=== PATIENT | male | born 1955 | race Caucasian/White ===

== ENCOUNTER 2018-09-27 02:02 | Outpatient (CLI) | payer BC, SELFPAY ==
[2018-09-27 11:10] LABS: Abs Immature Grans 0.01 k/cumm (0.0-0.09); Absolute Basophil Count 0.05 k/cumm (0.0-0.2); Absolute Eosinophil Count 0.14 k/cumm (0.0-0.7); Absolute Monocyte Count 0.44 k/cumm (0.11-0.7); Absolute Neutrophil Count 3.84 k/cumm (1.2-6.7); Basophils % 0.7; Eosinophils % 2.1; HCT 45.6 % (40.0-50.0); HGB 15.7 g/dL (13.5-17.5); Immature Grans % 0.1; Lymphocytes % 32.9; Mean Corp. HGB Concentration 34.4 g/dL (32.0-36.0); Mean Corpuscular Hemoglobin 30.5 pg (27.0-33.0); Mean Corpuscular Volume 88.5 fL (80-95); Mean Platelet Volume 10.6 fL (8.0-11.0); Monocytes % 6.6; Neutrophils % 57.6; Platelet Count 205 x1000/uL (130-400); RBC 5.15 m/cumm (4.50-6.00); RBC Distribution Width 13.4 % (11.8-14.1); White Blood Cell Count 6.68 k/cumm (4.4-10.8)
[2018-09-27 11:29] LABS: ALT 27 U/L (12-78); AST 17 U/L (15-37); Albumin 4.3 g/dL (3.4-5.0); Alkaline Phosphatase 73 U/L (46-116); Anion Gap 10.3 mmol/L (3-11); BUN 20 mg/dL (7-18); Bilirubin, Total 0.8 mg/dL (0.2-1.0); CO2 26.7 mmol/L (21.0-32.0); CREATININE 1.22 mg/dL (0.70-1.30); Calcium 9.1 mg/dL (8.5-10.1); Chloride 99 mmol/L (98-107); Cholesterol 115 mg/dL (50-200); Estimated GFR 59.99 (mL/min/1.73m2); Glucose 213 mg/dL (70-100); HDL Cholesterol 32 mg/dL (40-60); LDL CHOLESTEROL 56 mg/dL (<100); Potassium 4.1 mmol/L (3.5-5.1); Sodium 136 mmol/L (136-145); Total Protein 7.6 g/dL (6.4-8.2); Triglyceride 157 mg/dL (30-150)
== END 2018-09-27 02:22 ==
PROVIDERS: PCP Internal Medicine; Visit Provider Internal Medicine
DX: E11.9 Type 2 diabetes mellitus without complications (principal); I10 Essential (primary) hypertension; R50.9 Fever, unspecified
CPT/HCPCS: 36415; 80053; 80061; 83721; 85025

== ENCOUNTER 2018-12-26 01:38 | Outpatient (CLI) | payer BC, SELFPAY ==
[2018-12-26 12:14] LABS: Hemoglobin A1C 8.8 % (4.5-6.2)
== END 2018-12-26 01:58 ==
PROVIDERS: PCP Internal Medicine; Visit Provider Internal Medicine
DX: E11.9 Type 2 diabetes mellitus without complications (principal)
CPT/HCPCS: 36415; 83036

== ENCOUNTER 2019-03-21 01:54 | Outpatient (CLI) | payer BC, SELFPAY ==
[2019-03-21 12:05] LABS: Hemoglobin A1C 7.3 % (4.5-6.2)
== END 2019-03-21 02:14 ==
PROVIDERS: PCP Internal Medicine; Visit Provider Internal Medicine
DX: E11.9 Type 2 diabetes mellitus without complications (principal)
CPT/HCPCS: 36415; 83036

== ENCOUNTER 2019-12-26 01:27 | Outpatient (CLI) | payer BC, SELFPAY ==
[2019-12-26 09:11] LABS: Hemoglobin A1C 7.4 % (3.8-5.6)
[2019-12-26 09:40] LABS: CREATININE 1.26 mg/dL (0.70-1.30); Calculated LDL 50 mg/dL (<100); Cholesterol 127 mg/dL (<200); Estimated GFR 57.62 (mL/min/1.73m2); HDL Cholesterol 39 mg/dL (40-60); Triglyceride 194 mg/dL (<150)
== END 2019-12-26 01:47 ==
PROVIDERS: PCP Nurse Practitioner; Visit Provider Nurse Practitioner
DX: I10 Essential (primary) hypertension (principal); E11.9 Type 2 diabetes mellitus without complications; E78.2 Mixed hyperlipidemia
CPT/HCPCS: 36415; 80061; 82565; 83036

== ENCOUNTER 2020-07-14 04:17 | Outpatient (CLI) | payer MEDICARE, BC, SELFPAY ==
[2020-07-15 15:10] LABS: COVID-19 RT-PCR UVMMC Result Negative (Negative)
== END 2020-07-14 04:37 ==
PROVIDERS: PCP Nurse Practitioner; Visit Provider Nurse Practitioner
DX: Z20.822 Contact with and (suspected) exposure to COVID-19 (principal)
CPT/HCPCS: U0003

== ENCOUNTER 2020-09-10 10:23 | Outpatient (CLI) | payer MEDICARE, BC, SELFPAY ==
--- NOTE | 2020-09-10 08:48 | DI.RAD_ITS ---
EXAM: XR SHOULDER RT COMPLETE 2+V CLINICAL HISTORY: R shoulder pain. TECHNIQUE: 2D digital imaging was performed. COMPARISON: No exams were available for comparison FINDINGS: There is spurring at the undersurface of the acromion. There are mild degenerative changes of the AC joint. There there is spurring at the inferior glenohumeral joint. Subchondral cysts are noted in the humeral head. Humeral head appears superiorly positioned and could represent a chronic rotator c uff tear. Sternal wires are incidentally noted. IMPRESSION: Mild degenerative changes of the glenohumeral joint. Question of chronic rotator tear. DATA REPOSITORY: RADIATION DOSE DELIVERED:
== END 2020-09-10 10:24 | disposition home or self-care (01) ==
LOC: DIORS 10:23
PROVIDERS: PCP Nurse Practitioner; Referring Provider Nurse Practitioner; Visit Provider Physician Assistant
DX: M19.011 Primary osteoarthritis, right shoulder (principal)
CPT/HCPCS: 73030

== ENCOUNTER → 2020-10-20 08:00 | Outpatient (BNVA) | payer MEDICARE, BC, SELFPAY | PROVIDERS: PCP Nurse Practitioner; Visit Provider Student in an Organized Health Care Education/Training Program | DX: S46.111D Strain of muscle, fascia and tendon of long head of biceps, right arm, subsequent encounter (principal); X58.XXXD Exposure to other specified factors, subsequent encounter | CPT/HCPCS: 99213 ==

== ENCOUNTER → 2020-11-24 11:08 | Outpatient (BNVA) | payer MEDICARE, BC, SELFPAY | PROVIDERS: PCP Nurse Practitioner; Referring Provider Nurse Practitioner; Visit Provider Student in an Organized Health Care Education/Training Program | DX: S46.111D Strain of muscle, fascia and tendon of long head of biceps, right arm, subsequent encounter (principal); X58.XXXD Exposure to other specified factors, subsequent encounter | CPT/HCPCS: 99213 ==

== ENCOUNTER → 2021-01-05 10:58 | Outpatient (BNVA) | payer MEDICARE, BC, SELFPAY | PROVIDERS: PCP Nurse Practitioner; Referring Provider Nurse Practitioner; Visit Provider Internal Medicine Cardiovascular Disease | DX: I44.2 Atrioventricular block, complete (principal); Z45.018 Encounter for adjustment and management of other part of cardiac pacemaker | CPT/HCPCS: 93280 ==

== ENCOUNTER → 2021-04-06 09:17 | Outpatient (BNVA) | payer MEDICARE, BC, SELFPAY | PROVIDERS: PCP Nurse Practitioner; Referring Provider Nurse Practitioner; Visit Provider Internal Medicine Cardiovascular Disease | DX: R09.89 Other specified symptoms and signs involving the circulatory and respiratory systems (principal); Z45.018 Encounter for adjustment and management of other part of cardiac pacemaker | CPT/HCPCS: 93280 ==

== ENCOUNTER 2021-06-03 04:21 | Outpatient (CLI) | payer MEDICARE, BC, SELFPAY ==
[2021-06-03 13:06] LABS: Hemoglobin A1C 8.3 % (<5.7)
[2021-06-03 13:09] LABS: Anion Gap 9.8 mmol/L (3-11); BUN 24 mg/dL (7-18); CO2 28.2 mmol/L (21.0-32.0); CREATININE 1.2 mg/dL (0.70-1.30); Calcium 9.6 mg/dL (8.5-10.1); Calculated LDL 70 mg/dL (<100); Chloride 100 mmol/L (98-107); Cholesterol 138 mg/dL (<200); Glucose 195 mg/dL (74-106); HDL Cholesterol 41 mg/dL (40-60); Potassium 5.1 mmol/L (3.5-5.1); Sodium 138 mmol/L (136-145); Triglyceride 136 mg/dL (<150)
[2021-06-03 13:38] LABS: COMMENT (LAB VIEW ONLY) 19.67 mg/dL; Microalb ug/mg Crea 9.2 ug/mg Cr
== END 2021-06-03 04:22 | disposition home or self-care (01) ==
LOC: LOS 04:21
PROVIDERS: PCP Nurse Practitioner; Visit Provider Nurse Practitioner
DX: E11.9 Type 2 diabetes mellitus without complications (principal); I10 Essential (primary) hypertension; E78.5 Hyperlipidemia, unspecified
CPT/HCPCS: 36415; 80048; 80061; 82043; 82570; 83036

== ENCOUNTER → 2022-04-05 09:21 | Outpatient (BNVA) | payer MEDICARE, OTHER, SELFPAY | PROVIDERS: PCP Nurse Practitioner; Referring Provider Nurse Practitioner; Visit Provider Internal Medicine Cardiovascular Disease | DX: Z95.0 Presence of cardiac pacemaker (principal); I48.91 Unspecified atrial fibrillation | CPT/HCPCS: 93280 ==

== ENCOUNTER 2022-06-13 18:54 | Outpatient (REF) | payer MEDICARE, OTHER, SELFPAY ==
[2022-06-13 21:01] LABS: Bilirubin Negative (Negative); Blood Moderate (Negative); Clarity Sl Cloudy (Clear); Glucose 500 mg/dL (Negative); Ketones Negative (Negative); Leukocyte Esterase Negative (Negative); Nitrite Positive (Negative); Urobilinogen 0.2 EU/dL (Up TO 0.2)
[2022-06-13 21:08] LABS: Bacteria Many HPF (Negative); C & S Indicated? Yes; Casts Negative LPF (Negative); Crystals Negative HPF (Negative); Epithelial Cells Rare HPF (Negative); Mucus Negative (Negative)
== END 2022-06-13 18:55 | disposition home or self-care (01) ==
LOC: LBN 18:54
PROVIDERS: PCP Nurse Practitioner Family; Visit Provider Physician Assistant
DX: R39.9 Unspecified symptoms and signs involving the genitourinary system (principal)
CPT/HCPCS: 87077; 81003; 81015; 87086; 87186

== ENCOUNTER → 2023-04-04 09:11 | Outpatient (BNVA) | payer MEDICARE, SELFPAY | PROVIDERS: PCP Nurse Practitioner Family; Visit Provider Internal Medicine Cardiovascular Disease | DX: Z79.01 Long term (current) use of anticoagulants (principal); I10 Essential (primary) hypertension; E11.9 Type 2 diabetes mellitus without complications; I48.91 Unspecified atrial fibrillation; Z95.0 Presence of cardiac pacemaker | CPT/HCPCS: 99214 ==

== ENCOUNTER 2023-04-12 01:11 | Outpatient (CLI) | payer MEDICARE, SELFPAY ==
[2023-04-12 12:27] LABS: Anion Gap 8.1 mmol/L (3-11); BUN 31 mg/dL (7-18); CO2 26.9 mmol/L (21.0-32.0); CREATININE 1.3 mg/dL (0.70-1.30); Calcium 9.4 mg/dL (8.5-10.1); Chloride 100 mmol/L (98-107); Estimated GFR 60.21 (mL/min/1.73m2); Glucose 332 mg/dL (74-106); Potassium 4.1 mmol/L (3.5-5.1); Sodium 135 mmol/L (136-145)
== END 2023-04-12 01:12 | disposition home or self-care (01) ==
LOC: LBO 01:11
PROVIDERS: PCP Nurse Practitioner Family; Visit Provider Internal Medicine Cardiovascular Disease
DX: I10 Essential (primary) hypertension (principal); I48.91 Unspecified atrial fibrillation; Z79.01 Long term (current) use of anticoagulants
CPT/HCPCS: 36415; 80048

== ENCOUNTER → 2024-04-02 08:46 | Outpatient (BNVA) | payer MEDICARE, SELFPAY | PROVIDERS: PCP Nurse Practitioner Family; Referring Provider Nurse Practitioner Family; Visit Provider Internal Medicine Cardiovascular Disease | DX: Z95.810 Presence of automatic (implantable) cardiac defibrillator (principal) | CPT/HCPCS: 93280 ==

== ENCOUNTER 2024-06-02 04:35 | Outpatient (CLI) | payer MEDICARE, SELFPAY ==
[2024-06-02 12:17] LABS: HCT 46.8 % (40.0-50.0); HGB 14.9 g/dL (13.5-17.5); MCH 30.5 pg (27.0-33.0); MCHC 31.8 % (32.0-36.0); MCV 96 fL (80-95); MPV 9.8 fL (8.0-11.0); Platelet Count 191 10^3/uL (130-400); RBC 4.88 10^6/uL (4.36-5.78); RDW 13.4 % (11.8-14.1); RDW-SD 48.2 fL; WBC 6.55 10^3/uL (4.4-10.8)
[2024-06-02 12:26] LABS: Hemoglobin A1C 6.6 % (<5.7)
[2024-06-02 13:13] LABS: ALT 18 U/L (16-63); AST 16 U/L (15-37); Alkaline Phosphatase 78 U/L (46-116); Anion Gap 8.6 mmol/L (3-11); BUN 27 mg/dL (7-18); Bilirubin, Total 0.71 mg/dL (0.2-1.0); CO2 27.4 mmol/L (21.0-32.0); CREATININE 1.2 mg/dL (0.70-1.30); Calcium 8.9 mg/dL (8.5-10.1); Chloride 105 mmol/L (98-107); Estimated GFR 65.46 (mL/min/1.73m2); Glucose 124 mg/dL (74-106); Potassium 4.5 mmol/L (3.5-5.1); Sodium 141 mmol/L (136-145); Total Protein 7.7 g/dL (6.4-8.2); Uric Acid 4.5 mg/dL (3.5-7.2)
[2024-06-02 13:24] LABS: Calculated LDL 65 mg/dL (<100); Cholesterol 135 mg/dL (<200); HDL Cholesterol 54 mg/dL (40-60); Triglyceride 84 mg/dL (<150)
[2024-06-02 22:37] LABS: PSA, Screening 1.9 ng/mL (<=4.5)
== END 2024-06-02 04:36 | disposition home or self-care (01) ==
LOC: LBO 04:36
PROVIDERS: PCP Nurse Practitioner Family; Visit Provider Nurse Practitioner Family
DX: I10 Essential (primary) hypertension; E78.2 Mixed hyperlipidemia; I48.91 Unspecified atrial fibrillation; E11.9 Type 2 diabetes mellitus without complications; M1A.9XX0 Chronic gout, unspecified, without tophus (tophi); Z12.5 Encounter for screening for malignant neoplasm of prostate
CPT/HCPCS: 36415; 80053; 80061; 84153; 85027; 83036; 84550

== ENCOUNTER 2025-01-26 02:39 | Outpatient (CLI) | payer MEDICARE, SELFPAY ==
--- NOTE | 2025-01-26 13:30 | DI.US_ITS ---
APPROVED REPORT EXAM: Comprehensive 2D, Doppler, and color-flow Echocardiogram Patient Location: Out-Patient [facility] Helper: Cristiano Barahona RDCS (AE) Indications: Nonrheumatic aortic valve stenosis, history of AVR and pacemaker 2015 Other Information Study Quality: Fair Conclusion Normal left ventricular wall thickness and chamber size. Ejection fraction is 60%. Wall motion is normal Normal right ventricular size and function Both atria are normal in size There is a bioprosthetic aortic valve. There is no aortic stenosis or regurgitation Mitral and tricuspid annular calcification Device lead noted in the right heart Estimated right ventricular systolic pressure is 35 mmHg Wall motion Left Ventricle The left ventricle is normal size. The left ventricular systolic function is normal. The left ventricular ejection fraction is within the normal range. There is normal left ventricular wall thickness. There is normal LV segmental wall motion. There is no ventricular septal defect visualized. LVEF is 60%. Right Ventricle The right ventricle is normal size. The right ventricular systolic function is normal. Pacemaker lead is present in the right ventricle. Atria The left atrium size is normal. The right atrium size is normal. The interatrial septum is intact with no evidence for an atrial septal defect. Aortic Valve Bioprosthetic aortic valve is present. There is no aortic valvular stenosis. No aortic regurgitation is present. Mitral Valve Mitral annular calcification. No evidence of mitral valve stenosis. Trace mitral regurgitation. Tricuspid Valve The tricuspid valve is normal in structure. There is no tricuspid valve stenosis. Trace to mild tricuspid regurgitation. The RVSP is 34.7 mmHg. Pulmonic Valve The pulmonary valve is normal in structure. There is no pulmonic valvular stenosis. There is no pulmonic valvular regurgitation. Great Vessels The aortic root is normal in size. Ascending aorta is not well visualized. IVC is normal in size and collapses >50% with inspiration. Pericardium There is no pericardial effusion. 2D Dimensions IVSD d PLAX 1.02 cm M: 0.6-1.2 Ao Root d 2.36 cm M: 3.1 - 3.7 LVPW d PLAX 1.11 cm M: 0.6 - 1.2 LVID d PLAX 4.26 cm M: 4.2 - 5.8 LVDs 2.97 cm M: 2.5 - 4.0 LV EF Teichholz 58.0 % FS 30.32 % LV EDV (Teich) 81.5 mL LV ESV (Teich) 34.2 mL Stroke Vol Index (Teich) 23.05 M-Mode TAPSE 1.64 cm (M/F) >1.7 Auto EF LV EDV A4C 118.8 mL LV EDV A2C 95.2 mL LV EDV BP LV ESV A4C 50.3 mL LV ESV A2C 43.2 mL LV ESV BP LVEF(%) A4C 57.7 % LVEF(%) A2C 54.6 % LVEF(%) BP LV SV A4C 68.5 ml LV SV A2C 52.0 ml LV SV BP LV CO A4C 6.8 L/min LV CO A2C 4.1 L/min LV CO BP HR A4C 99.45 BPM HR A2C 79.48 BPM LV EDV Index (BP) LA Volume LA Length A4C 4.3 cm LA Length A2C 4.3 cm LA Area A4C s 10.67 cm2 LA Area A2C s 10.79 cm2 LA Vol A4C A-L 22.46 mL LA Vol A2C A-L 22.97 mL LA Vol Biplane A-L 22.7 mL LA Vol/BSA A4C A-L LA Vol/BSA A2C A-L LA Vol/BSA BP A-L 11.1 mL/m2 LA Vol A4C MOD 21.2 mL LA Vol A2C MOD 20.0 mL LA Vol BP MOD 20.3 mL RA Volume RA Area A4C 14.5 cm2 RA ESV A4C (A-L) 38.2mL RA Vol/BSA A4C A-L RA Length A4C 4.7 cm RA ESV A4C (MOD) 35.7mL LV Diastology MV E' medial 0.078 (>0.07 m/s) MV E Vmax 1.02 (0.4-1.3 m/s) MV E/E' MED 13.05 (<14) MV A Vmax 0.85 (0.4-1.3 m/s) MV E' lateral 0.111 (>0.1 m/s) E/A Ratio 1.2 MV E/E' LAT 9.14 (<14) MV E' Average 0.095 m/s MV E/E'(average) 10.75 Aortic Valve AoV Vmax 1.21 m/s LVOT Vmax 1.35 m/s AoV Peak Grad 5.9 mmHg LVOT Peak Grad 7.3 mmHg AoV Area (Vmax) 3.43 cm2 LVOT VTI 0.263 m AoV VTI 0.280 m LVOT Mean Grad 3.5 mmHg AoV Mean Minor. 0.90 m/s LVOT SV 80.61 mL AoV Mean Grad 3.6 mmHg LVOT Diam s 1.95 cm AoV Area (VTI) 2.88 cm2 AV Regurg Peak Gr. 5.88 mmHg Velocity Ratio 1.12 Mitral Valve MV DT 227 (160-240 msec) Pulmonary Valve RVOT Vmax 0.82 m/s RVOT Peak Gr. 2.7 mmHg RVOT VTI 0.166 m RVOT Mean Gr. 1.7 mmHg Tricuspid Valve RA Pressure 3.00 mmHg TR Vmax 2.82 m/s TR Peak Grad 31.7 mmHg RVSP (TR) 34.7 mmHg
== END 2025-01-26 02:59 ==
PROVIDERS: PCP Nurse Practitioner Family; Visit Provider Internal Medicine Cardiovascular Disease
DX: I35.0 Nonrheumatic aortic (valve) stenosis (principal); Z95.2 Presence of prosthetic heart valve
CPT/HCPCS: 93306